=== PATIENT | female | born 1975 | race Two or more races ===

== ENCOUNTER 2024-05-05 14:42 | Emergency (ER) | payer OTHER ==
[~2024-05-05] VITALS: Ht 152.4 cm; Wt 63.5 kg
[2024-05-05] MEDS ORDERED: MD PARA B/P (15:36)
[2024-05-05] MEDS ORDERED: KETOROLAC TROMETHAMINE 30 MG VIAL IM STA (18:14)
[2024-05-05] MEDS ORDERED: MECLIZINE HCL 25 MG TABLET PO STA (18:14)
[2024-05-05 20:18] VITALS: BP 108/72; O2SAT 98
== END 2024-05-05 20:20 | disposition home or self-care (01) ==
LOC: ER 14:44
DX: M54.2 Cervicalgia (principal); R42 Dizziness and giddiness; Z88.0 Allergy status to penicillin; Z91.013 Allergy to seafood